=== PATIENT | female | born 1950 | race African-American/Black ===

== ENCOUNTER 2025-07-16 17:33 | Emergency (ER) | payer OTHER, MEDICAID ==
[~2025-07-16] VITALS: Ht 165.1 cm; Wt 60.0 kg
[~2025-07-16 17:33] MED LIST: BENA10TA75 GT; INSU100V3 IJ; METF-414 PO
[2025-07-16 17:34] VITALS: BP 176/82; PULSE 84; RESP 18; TEMP 97.9; O2SAT 99
== END 2025-07-16 21:50 | disposition left against medical advice (07) ==
LOC: ER 17:33
DX: S06.9X9A Unspecified intracranial injury with loss of consciousness of unspecified duration, initial encounter (principal); I10 Essential (primary) hypertension; E11.9 Type 2 diabetes mellitus without complications; F03.90 Unspecified dementia, unspecified severity, without behavioral disturbance, psychotic disturbance, mood disturbance, and anxiety; W18.30XA Fall on same level, unspecified, initial encounter; Y93.89 Activity, other specified; Y92.89 Other specified places as the place of occurrence of the external cause; Y99.8 Other external cause status
CPT/HCPCS: 99283